=== PATIENT | male | born 2000 | race Two or more races ===

== ENCOUNTER 2024-03-22 13:14 | Emergency (ER) | payer SELFPAY ==
[~2024-03-22] VITALS: Ht 175.3 cm; Wt 77.7 kg
[2024-03-22 13:23] VITALS: BP 143/95; PULSE 77; RESP 20; O2SAT 97
--- NOTE | 2024-03-22 13:47 | ED.PDOC ---
History of Present Illness HPI Comments 23 y.o male presents to the ED via EMS for an evaluation of ETOH abuse. EMS reports patient's family called 911 today after finding patient intoxicated with erratic behavior at home. Patient had been drinking large amounts of alcohol due to recently losing his brother. It is unknown how much or type of alcohol he has been drinking and patient is too intoxicated to answer any questions or follow commands at bedside. He is alert to stimuli and continues to have erratic behavior. No signs of SI or HI as of now. Chief Complaint: ETOH Time Seen by MD: 13:30 Primary Care Provider: UNKNOWN Reviewed Notes: Nurses Notes, [place] Pinner Notes, Medications, Allergies Home Meds Active Scripts Multiple Vitamin (Multivitamins) Tab, 1 TAB PO DAILY, #90 TAB 3 Refills Prov:ARAVIND LOBO MD 03/22/24 Information Source: Emergency Med Personnel Mode of Arrival: EMS Severity: Moderate Timing: Hours Duration: Since onset Past Medical History PAST MEDICAL HISTORY: Unknown Surgical History: Unknown Family History Family History: Unknown Social History Smoker: Unknown Alcohol: Heavy Drugs: Unknown Lives In: Home Unable to Obtain due to: Other (ETOH intoxication ) Physical Exam General Appearance: Other (ETOH intoxication. slurred speech ) HEENT: Normal ENT Inspection Neck: Normal Inspection Respiratory: No Respiratory Distress, Normal Breath Sounds Cardiovascular: Normal Peripheral Pulses, Regular Rate/Rhythm Breast Exam: Deferred Gastrointestinal: No Organomegaly, Non Tender, No Pulsatile Mass Genitalia: Deferred Pelvic: Deferred Rectal: Deferred Extremities: Normal inspection Neurologic: Other (ETOH slurred speech) Cerebellar Function: Normal Reflexes: Normal Skin: Dry, Normal Color, Warm Lymphatic: NOT DONE Was a procedure done? Was a procedure done?: No Differential Dx Considerations may include: Traumatic brain injury, intoxication, encephalitis, meningitis, drugs, alcohol X-Ray, Labs, Meds, VS Vital Signs Date Time Temp Pulse Resp B/P (MAP) Pulse Ox O2 Delivery O2 Flow Rate FiO2 03/22/24 13:23 98.7 77 20 143/95 (111) 97 X-Ray, Labs, Meds, VS Comment This 23-year-old male presents secondary to being found intoxicated with erratic behavior. He continues to be erratic here. However, he denied SI or HI. He had no complaints of pain. Patient was observed. Unfortunately, the patient decided to low prior to be fully worked up. Time of 1ST Reevaluation: 15:18 Reevaluation 1ST: Unchanged Patient Education/Counseling: Other Family Education/Counseling: No Family Present Additional Information The following tests were ordered, and results were reviewed by me: (Labs, XY, EKG): Blood alcohol Additional Information was gathered from interviewing the following independent historians: (Family, Other Providers, EMT): Paramedics I reviewed and agreed with the following test results read by other providers: (X-Ray, CT, US): None I discussed treatment and results with medical personnel and: (Consultants, Family): Family Departure 1 Departure e-Prescriptions Multiple Vitamin (Multivitamins) Tab 1 TAB PO DAILY, #90 TAB 3 Refills Prov: ARAVIND LOBO MD 03/22/24 Critical Care Note Critical Care Time?: No Stability Stability form required: No I personally scribed for ARAVIND LOBO MD ([email or web address]) on 03/22/24 at 13:47. Electronically submitted by Kary Mars ([facility] I personally scribed for ARAVIND LOBO MD ([email or web address]) on 03/22/24 at 15:21. Joi ctronically submitted by Kary Mars ([facility]). ARAVIND LOBO MD Mar 22, 2024 13:47
[2024-03-22] MEDS ORDERED: MULT-1018 PO (14:36)
== END 2024-03-22 15:20 | disposition home or self-care (01) ==
LOC: ER 13:14 → EDBD 13:14 → ER 15:20
DX: I10 Essential (primary) hypertension (principal)